=== PATIENT | female | born 1965 | race Caucasian/White ===

== ENCOUNTER 2020-06-13 09:07 | Outpatient (REF) | payer MEDICARE, MEDICAID, SELFPAY ==
[2020-06-13 10:16] LABS: Alanine Aminotransferase 16 U/L (0-31); Albumin Level 4.4 g/dL (3.5-5.0); Alkaline Phosphatase 118 U/L (39-117); Anion Gap 13 (12-20); Aspartate Amino Transferase 13 U/L (5-31); Bilirubin Total 0.4 mg/dL (0.0-1.0); Blood Urea Nitrogen 19 mg/dL (9-16); Calcium 9.3 mg/dL (8.4-10.2); Carbon Dioxide 25 mmol/L (22-29); Chloride 106 mmol/L (96-108); Cholesterol 93 mg/dL; Estimated Glomerular Filt Rate > 60; Glucose Random 100 mg/dL (60-115); HDL Cholesterol 24 mg/dL; LDL Cholesterol Calculated 36 mg/dl; Potassium 4.2 mmol/l (3.3-5.1); Sodium 140 mmol/L (135-145); Total Protein 7.8 g/dL (6.5-8.0); Triglycerides 167 mg/dL
[2020-06-13 10:32] LABS: Estimated Average Glucose 117 mg/dL; Hemoglobin A1c % 5.7 %
[2020-06-13 10:45] LABS: Creatinine Urine 119.45 mg/dL; Microalbum/Creatinine Ratio Ur 71.1 ug/mg cr
[2020-06-14 08:53] LABS: LDL Cholesterol Direct 32 mg/dL (<100)
== END 2020-06-13 09:08 | disposition home or self-care (01) ==
LOC: HO.LAB 09:07
PROVIDERS: PCP Internal Medicine; Visit Provider Internal Medicine
DX: E11.65 Type 2 diabetes mellitus with hyperglycemia (principal)
CPT/HCPCS: 36415; 80053; 80061; 82043; 83036; 83721

== ENCOUNTER → 2020-06-17 12:19 | Outpatient (BNVA) | payer MEDICARE, MEDICAID, SELFPAY | PROVIDERS: PCP Internal Medicine; Visit Provider Internal Medicine | DX: E11.65 Type 2 diabetes mellitus with hyperglycemia (principal); I10 Essential (primary) hypertension; E78.5 Hyperlipidemia, unspecified; E66.09 Other obesity due to excess calories | CPT/HCPCS: 82947; 99212 ==

== ENCOUNTER 2020-06-21 02:44 | Inpatient (IN) | payer MEDICARE, MEDICAID, SELFPAY ==
[2020-06-21] VITALS (15 sets, daily range): BP systolic 127–149; BP diastolic 70–86; PULSE 99–115; RESP 16–26; TEMP 36.1–37.1; O2SAT 89–99; BMI 28.3
--- NOTE | 2020-06-21 02:51 | ECG_ITS ---
Test Reason : SOB Blood Pressure : / mmHG Vent. Rate : 103 BPM Atrial Rate : 103 BPM P-R Int : 176 ms QRS Dur : 090 ms QT Int : 340 ms P-R-T Axes : 066 048 059 degrees QTc Int : 445 ms Sinus tachycardia Possible Left atrial enlargement Borderline ECG When compared with ECG of 25-OCT-2018 14:40, No significant change was found Referred By: Meggan Shultz Electronically Signed By: WANG ADORNO MD [facility]
--- NOTE | 2020-06-21 02:51 | XR_ITS ---
EXAMINATION: XR CHEST CLINICAL INFORMATION: Shortness of breath COMPARISON: 08/08/2018 TECHNIQUE: Frontal view of the chest was obtained. FINDINGS: EKG leads over the chest. Lungs are mildly hyperexpanded. Cardiac silhouette is normal. Pulmonary vasculature is unremarkable. No consolidation, pneumothorax, or pleural effusion. No acute osseous findings. XR/XR chest 1V IMPRESSION: No acute pulmonary findings.
--- NOTE | 2020-06-21 02:56 | ED_ITS ---
HPI - SOB/Dyspnea General Chief Complaint: Upper Respiratory Symptoms Stated Complaint: SOB Time Seen by Provider: 06/21/20 02:50 Source: patient History of Present Illness HPI Narrative: This is a 55-year-old female with worsening shortness of breath over the past couple of days and known history of COPD. Patient states that despite using her breathing treatments every 4 hours she has had no improvement. She denies any travel, GI symptoms, symptoms, chest pain/palpitations, sore throat but is having a cough and denies fevers, chills. Related Data Home Medications Medication Instructions Recorded Confirmed albuterol sulfate 2.5 mg INHALATION Q4-6H PRN 04/22/20 06/21/20 albuterol sulfate 90 mcg/actuation INHALATION 04/22/20 06/17/20 aerosol inhaler amlodipine 2.5 mg tablet 2.5 mg PO DAILY 04/22/20 06/21/20 atorvastatin 40 mg tablet 40 mg PO DAILY 04/22/20 06/21/20 blood sugar diagnostic #10 ea 04/22/20 06/17/20 cholecalciferol (vitamin D3) 25 25 mcg PO DAILY 04/22/20 06/21/20 mcg (1,000 unit) capsule clonazepam 1 mg tablet 1 mg PO BID PRN 04/22/20 06/21/20 famotidine 20 mg tablet 20 mg PO DAILY 04/22/20 06/21/20 hydrochlorothiazide 12.5 mg tablet 12.5 mg PO DAILY 04/22/20 06/21/20 metoprolol succinate 25 mg 25 mg PO DAILY 04/22/20 06/21/20 tablet,extended release 24 hr mirtazapine 30 mg tablet 30 mg PO BEDTIME 04/22/20 06/21/20 omeprazole 20 mg capsule,delayed 20 mg PO DAILY 04/22/20 06/21/20 release pen needle, diabetic 32 gauge x #50 ea 04/22/20 06/17/20 quetiapine 100 mg tablet 100 mg PO BEDTIME 04/22/20 06/21/20 Previous Rx's Medication Instructions Recorded liraglutide 0.6 mg/0.1 mL (18 mg/3 1.8 mg SUBCUT DAILY 30 Days #9 ml 04/01/20 mL) subcutaneous pen injector pen needle, diabetic 32 gauge x #50 ea 04/01/2006/10 lancets 28 gauge #100 ea 04/03/20 gabapentin 300 mg capsule 300 mg PO TID 30 Days #90 cap 06/13/20 flash glucose scanning reader #1 ea 06/17/20 flash glucose sensor #2 ea 06/17/20 Allergies Allergy/AdvReac Type Severity Reaction Status Date / Time tuberculin, purified protein Allergy Unknown Unknown Verified 06/17/20 12:43 deriva From TUBERCULIN PPD DAVON TEST Allergy Intermediate SWELLING Uncoded 06/17/20 12:43 Review of Systems Review of Systems: Pertinent positives and negatives as stated in HPI 10 point review systems is otherwise negative. [facility] Past Medical History Source: nursing notes reviewed Medical History CKD (chronic kidney disease) HLD (hyperlipidemia) HTN (hypertension) Obesity T2DM (type 2 diabetes mellitus) Surgical History History of esophagogastroduodenoscopy (EGD) History of renal stent Hx of cholecystectomy Hx of colonoscopy Hx of cystoscopy Hx of hemorrhoidectomy Hx of removal of cyst Hx of tubal ligation Family History Family History Father Liver disease Mother Depression Hypertension Asthma COPD (chronic obstructive pulmonary disease) Social History Social History Alcohol intake: current Smoking Status: Former smoker Smoked in Last 30 Days: No Advance Directives: No Physical Exam Vital Signs: Vital Signs: Last Vital Signs Temp 98.7 F 06/21/20 02:52 Pulse 99 06/21/20 07:48 Resp 22 H 06/21/20 06:00 BP 136/86 06/21/20 06:00 Pulse Ox 92 06/21/20 06:30 Body Mass Index 28.3 VITAL SIGNS: Reviewed. GENERAL: Well developed, well nourished, in no acute distress. HEAD: Normocephalic/atraumatic, EYES: PERRLA, EOMI intact without pain, no nystagmus/pallor/icterus noted EARS: Ext canals without abnormality NOSE: Nares patent bilateral OROPHARYNX: no oral lesions noted, posterior pharynx clear NECK: Supple, no adenopathy LUNGS: Bilateral rhonchi, no rales, and tachypnea present. SpO2<89/95> patient initially mildly hypoxic on arrival and responded well to application of nasal cannula. CARDIOVASCULAR: Regular rate and rhythm without noted murmurs, no JVD or lower extremity edema. ABDOMEN: Soft, non-tender, non-distended with bowel sounds. No rigidity. No guarding. No palpable masses or hernias noted MUSCULOSKELETAL: No tenderness, deformities, or effusions noted on gross inspect ion. EXTREMITIES: No cyanosis, clubbing or edema. SKIN: Inspection of the skin reveals no rashes NEUROLOGIC: Alert and oriented x 4. Course Course Course Narrative: This is a 55-year-old female with history and clinical presentation consistent with COPD exacerbation. On re-evaluation after an hour long albuterol and steroids patient remains unable to come off of the oxygen and additional DuoNebs and moxifloxacin were ordered. Discussed case with hospitalist who is agreeable for admission for COPD exacerbation. MDM - SOB/Dyspnea Lab Data Result diagrams: 06/21/20 03:33 06/21/20 03:33 Labs: Lab Results 06/21/20 06/21/20 06/21/20 Range/Units 03:33 03:33 03:33 WBC 9.3 (4.8-10.8) X10*3/uL RBC 5.08 (4.20-5.50) X10*6/uL Hgb 15.2 (12.0-16.0) g/dl Hct 46.8 (37-47) % MCV 92.1 (80-98) fL MCH 29.9 (27.0-33.0) pg MCHC 32.5 (31.0-35.0) g/dl RDW 13.2 (11.0-16.0) % Plt Count 260 (160-400) X10*3/uL MPV 9.5 (9.4-12.3) fL Immature Gran % (Auto) 0.4 (0.0-0.4) % Neut % (Auto) 70.3 (45-73) % Lymph % (Auto) 20.3 (20-40) % [place] % (Auto) 4.6 (2-11) % Eos % (Auto) 3.6 (0-4) % Baso % (Auto) 0.8 (0-2) % Lymph # (Auto) 1.9 (1.2-4.9) X10*3/uL [place] # (Auto) 0.4 (0.1-1.2) X10*3/uL Eos # (Auto) 0.3 (0.0-0.4) X10*3/uL Baso # (Auto) 0.1 (0.0-0.2) X10*3/uL Abs Immat Gran (auto) 0.04 H (0.00-0.03) X10*3/uL Absolute Neuts (auto) 6.5 (2.0-8.3) X10*3/uL Absolute Nucleated RBC 0.000 (0.0-0.012) X10*3/uL Nucleated RBC % (auto) 0.0 (0.0-0.2) /100WBC Sodium 143 (135-145) mmol/L Potassium 3.7 (3.3-5.1) mmol/l Chloride 105 (96-108) mmol/L Carbon Dioxide 27 (22-29) mmol/L Anion Gap 15 (12-20) BUN 22 H (9-16) mg/dL Creatinine 0.81 (0.5-1.4) mg/dL Estim Creat Clear Calc 70.4 Estimated GFR > 60 Random Glucose 125 H (60-115) mg/dL Lactic Acid (0.5-2.0) mmol/L Calcium 9.6 (8.4-10.2) mg/dL Magnesium 1.9 (1.6-2.6) mg/dL Total Bilirubin 0.2 (0.0-1.0) mg/dL AST 12 (5-31) U/L ALT 14 (0-31) U/L Alkaline Phosphatase 116 (39-117) U/L B-Natriuretic Peptide (<100) pg/mL Total Protein 7.4 (6.5-8.0) g/dL Albumin 4.2 (3.5-5.0) g/dL Coronavirus (PCR) NEGATIVE (Negative) Influenza Type A (PCR) NEGATIVE (Negative) Influenza Type B (PCR) NEGATIVE (Negative) RSV RNA Qual (PCR) NEGATIVE (Negative) 06/21/20 06/21/20 Range/Units 03:33 03:33 WBC (4.8-10.8) X10*3/uL RBC (4.20-5.50) X10*6/uL Hgb (12.0-16.0) g/dl Hct (37-47) % MCV (80-98) fL MCH (27.0-33.0) pg MCHC (31.0-35.0) g/dl RDW (11.0-16.0) % Plt Count (160-400) X10*3/uL MPV (9.4-12.3) fL Immature Gran % (Auto) (0.0-0.4) % Neut % (Auto) (45-73) % Lymph % (Auto) (20-40) % Sussex % (Auto) (2-11) % Eos % (Auto) (0-4) % Baso % (Auto) (0-2) % Lymph # (Auto) (1.2-4.9) X10*3/uL [place] # (Auto) (0.1-1.2) X10*3/uL Eos # (Auto) (0.0-0.4) X10*3/uL Baso # (Auto) (0.0-0.2) X10*3/uL Abs Immat Gran (auto) (0.00-0.03) X10*3/uL Absolute Neuts (auto) (2.0-8.3) X10*3/uL Absolute Nucleated RBC (0.0-0.012) X10*3/uL Nucleated RBC % (auto) (0.0-0.2) /100WBC Sodium (135-145) mmol/L Potassium (3.3-5.1) mmol/l Chloride (96-108) mmol/L Carbon Dioxide (22-29) mmol/L Anion Gap (12-20) BUN (9-16) mg/dL Creatinine (0.5-1.4) mg/dL Estim Creat Clear Calc Estimated GFR Random Glucose (60-115) mg/dL Lactic Acid 0.9 (0.5-2.0) mmol/L Calcium (8.4-10.2) mg/dL Magnesium (1.6-2.6) mg/dL Total Bilirubin (0.0-1.0) mg/dL AST (5-31) U/L ALT (0-31) U/L Alkaline Phosphatase (39-117) U/L B-Natriuretic Peptide 11 (<100) pg/mL Total Protein (6.5-8.0) g/dL Albumin (3.5-5.0) g/dL Coronavirus (PCR) (Negative) Influenza Type A (PCR) (Negative) Influenza Type B (PCR) (Negative) RSV RNA Qual (PCR) (Negative) ECG Data Attestation: I personally reviewed and interpreted this ECG as follows: Interpretation: Sinus tachycardia, HR-102, no evidence acute ischemia, KS/QRS/QTC are within normal limits. Discharge Plan Discharge Clinical Impression: COPD exacerbation, Hypoxia Patient Disposition: Admitted As Inpatient
[2020-06-21] MEDS: Albuterol Sulfate (0.083%) 2.5 MG/3 ML VIAL.NEB 5 MG INHALE (03:07)
[2020-06-21] MEDS: methylPREDNISolone Sod Succ/PF 125 MG/2 ML VIAL IVPUSH (03:37)
[2020-06-21 03:44] LABS: MANUAL DIFF FLAG NO
[2020-06-21 03:47] LABS: Basophils Absolute Auto 0.1 X10*3/uL (0.0-0.2); Basophils Percent Auto 0.8 % (0-2); Eosinophils Absolute Auto 0.3 X10*3/uL (0.0-0.4); Eosinophils Percent Auto 3.6 % (0-4); Hematocrit 46.8 % (37-47); Hemoglobin 15.2 g/dl (12.0-16.0); Imm Gran Abs Auto 0.04 X10*3/uL (0.00-0.03); Imm Gran Pct Auto 0.4 % (0.0-0.4); Lymphocytes Absolute Auto 1.9 X10*3/uL (1.2-4.9); Lymphocytes Percent Auto 20.3 % (20-40); Mean Corpuscular HGB Conc 32.5 g/dl (31.0-35.0); Mean Corpuscular Hemoglobin 29.9 pg (27.0-33.0); Mean Corpuscular Volume 92.1 fL (80-98); Mean Platelet Volume 9.5 fL (9.4-12.3); Monocytes Absolute Auto 0.4 X10*3/uL (0.1-1.2); Monocytes Percent Auto 4.6 % (2-11); Neutrophils Absolute Auto 6.5 X10*3/uL (2.0-8.3); Neutrophils Percent Auto 70.3 % (45-73); Platelet Count 260 X10*3/uL (160-400); Red Blood Count 5.08 X10*6/uL (4.20-5.50); Red Cell Distribution Width 13.2 % (11.0-16.0); White Blood Count 9.3 X10*3/uL (4.8-10.8)
[2020-06-21 04:07] LABS: Lactic Acid 0.9 mmol/L (0.5-2.0)
[2020-06-21 04:12] LABS: Alanine Aminotransferase 14 U/L (0-31); Albumin Level 4.2 g/dL (3.5-5.0); Alkaline Phosphatase 116 U/L (39-117); Anion Gap 15 (12-20); Aspartate Amino Transferase 12 U/L (5-31); Bilirubin Total 0.2 mg/dL (0.0-1.0); Blood Urea Nitrogen 22 mg/dL (9-16); Calcium 9.6 mg/dL (8.4-10.2); Carbon Dioxide 27 mmol/L (22-29); Chloride 105 mmol/L (96-108); Creatinine Clr Calc Pharmacy 70.4; Estimated Glomerular Filt Rate > 60; Glucose Random 125 mg/dL (60-115); Magnesium 1.9 mg/dL (1.6-2.6); Potassium 3.7 mmol/l (3.3-5.1); Sodium 143 mmol/L (135-145); Total Protein 7.4 g/dL (6.5-8.0)
[2020-06-21 04:27] LABS: B Type Natriuretic Peptide 11 pg/mL (<100)
[2020-06-21 04:31] LABS: Influenza A PCR NEGATIVE (Negative); Influenza B PCR NEGATIVE (Negative); Resp Syncy Virus RNA Qual PCR NEGATIVE (Negative); SARS COV2 PCR INHOUSE NEGATIVE (Negative)
[2020-06-21] MEDS: Benzonatate 100 MG CAPSULE PO (06:18)
--- NOTE | 2020-06-21 06:28 | PC.NURSE ---
PT MEDICATED PER MAR FOR COUGH. SUPPLEMENTAL O2 REMOVED, PT MAINTAINING 92-93% ON RA WHICH IS BASELINE PER PT DUE TO COPD. STATES SHE HAS A DOCTORS APPT THIS AM SHE DOES NOT WANT TO MISS. FALLING ASLEEP MID SENTENCE SPEAKING WITH RN. NOTIFIED OF CURRENT STATUS. RESULTS RECIEVED, AWAITING MD REEVAL AND MOST LIKELY DC HOME.
[2020-06-21] MEDS: Albuterol/Iprat 2.5/0.5MG 3 ML AMPUL.NEB INHALE ×2 (07:45)
--- NOTE | 2020-06-21 08:17 | PC.NURSE ---
pt completed updraft treatment and has agreed to admission she was given toast and juice
[2020-06-21] MEDS: levoFLOXacin/D5W 750 MG/150 ML PIGGYBACK 100 MG IV (08:28)
[2020-06-21 08:58] LABS: Adenovirus PCR Not Detected (Not Detect.); Bordetella parapertussis PCR Not Detected (Not Detect.); Bordetella pertussis PCR Not Detected (Not Detect.); Chlamydia pneumoniae PCR Not Detected (Not Detect.); Coronavirus 229E PCR Not Detected (Not Detect.); Coronavirus HKU1 PCR Not Detected (Not Detect.); Coronavirus NL63 PCR Not Detected (Not Detect.); Coronavirus OC43 PCR Not Detected (Not Detect.); Human metapneumovirus PCR Not Detected (Not Detect.); Influenza A PCR Not Detected (Not Detect.); Influenza B PCR Not Detected (Not Detect.); Mycoplasma pneumoniae PCR Not Detected (Not Detect.); Parainfluenza 1 PCR Not Detected (Not Detect.); Parainfluenza 2 PCR Not Detected (Not Detect.); Parainfluenza 3 PCR Not Detected (Not Detect.); Parainfluenza 4 PCR Not Detected (Not Detect.); RSV PCR Not Detected (Not Detect.); SARS-CoV-2 PCR Not Detected (Not Detect.)
[2020-06-21 11:23] LABS: Rhino/Enterovirus PCR Detected (Not Detect.)
[2020-06-21] MEDS: Acetaminophen 325 MG TABLET 650 MG PO ×2 (11:48→19:09)
[2020-06-21] MEDS: clonazePAM 1 MG TABLET PO ×2 (11:50→21:46)
[2020-06-21] MEDS: Cholecalciferol (Vitamin D3) 25 MCG TABLET PO (11:50)
[2020-06-21] MEDS: Gabapentin 300 MG CAPSULE PO ×3 (11:51→21:46)
[2020-06-21] MEDS: Atorvastatin Calcium 40 MG TABLET PO (11:52)
[2020-06-21] MEDS: amLODIPine Besylate 2.5 MG TABLET PO (11:52)
[2020-06-21] MEDS: Albuterol Sulfate (0.083%) 2.5 MG/3 ML VIAL.NEB INHALE ×3 (12:03→20:35)
[2020-06-21] MEDS: hydroCHLOROthiazide 12.5 MG TABLET PO (12:17)
--- NOTE | 2020-06-21 13:01 | HP_ITS ---
DATE OF SERVICE: 06/21/2020 PRIMARY CARE PROVIDER: Not listed. CHIEF COMPLAINT: Shortness of breath. HISTORY OF PRESENT ILLNESS: 55-year-old woman presenting with complaints of worsening shortness of breath over the last 2 days. She reported tight chest with dry cough. She reported that she went to her daughter's house several days ago and the living room was quite cold and then the kitchen was warm and she reported that she felt sick soon after that. She reports her last bad exacerbation was approximately 3 years ago and she has been using her inhalers, over the last couple of days with no effect. She denied fever, chills, recent travel, sick contacts, nausea, vomiting, or diarrhea. She does have a history of COPD and she is a previous smoker. In the ER, her vital signs have been stable. She has not been noted to be hypoxic at all. She was mildly tachycardic likely related to albuterol treatments. Her labs are all within acceptable limits. Coronavirus PCR is negative. She was given albuterol, Solu-Medrol, Tessalon Perles, and Levaquin in the ER. She will be admitted for further management and treatment of acute COPD exacerbation. PAST MEDICAL HISTORY: 1. COPD. 2. Diabetes mellitus. 3. CKD. 4. Hypertension. 5. Hyperlipidemia. 6. GERD. 7. Depression. PAST SURGICAL HISTORY: 1. Ureteral stent. 2. Cholecystectomy. 3. Hysterectomy. 4. Tubal ligation. SOCIAL HISTORY: Quit more than 3 years ago. Denies alcohol or illicit drug use. FAMILY HISTORY: Family history of coronary artery disease and COPD. ALLERGIES: ALLERGIES TO TUBERCULIN, PPD. MEDICATIONS: 1. Albuterol sulfate q.4 to 6 hours p.r.n. for shortness of breath. 2. Amlodipine besylate 2.5 mg p.o. daily. 3. Atorvastatin calcium 40 mg p.o. daily. 4. Cholecalciferol 25 mcg p.o. daily. 5. Clonazepam 1 mg p.o. b.i.d. p.r.n. 6. Famotidine 20 mg p.o. daily. 7. Gabapentin 300 mg p.o. t.i.d. 8. Hydrochlorothiazide 12.5 mg p.o. daily. 9. Liraglutide subcutaneous injected daily. 10. Metoprolol succinate 25 mg p.o. daily. 11. Mirtazapine 30 mg p.o. at bedtime. 12. Omeprazole 20 mg p.o. daily. 13. Seroquel 100 mg p.o. at bedtime. REVIEW OF SYSTEMS: CONSTITUTIONAL: Denies any recent fever, chills, or decrease in appetite. RESPIRATORY: See HPI. CARDIOVASCULAR: Denies any chest pain, orthopnea, PND, or edema. GASTROINTESTINAL: Denies any dysphagia, abdominal pain, nausea, vomiting, or diarrhea. GENITOURINARY: Denies any dysuria, frequency, or hematuria. MUSCULOSKELETAL: Denies any joint pain or swelling. NEUROPSYCH: Denies any weakness or seizures. All other systems are reviewed and are negative. PHYSICAL EXAMINATION: CONSTITUTIONAL: Resting in bed, appearing in no acute distress. VITAL SIGNS: 98.7, 109, 26, 130/80, and 96% on room air. SKIN: Intact without rashes or open sores. HEENT: Head is normocephalic and atraumatic. Eyes, pupils are PERRLA. Sclerae anicteric. Mouth and throat, mucous membranes are intact and moist. NECK: Supple. No lymphadenopathy. No JVD noted. CHEST: Expiratory wheezes throughout. HEART: Regular rate and rhythm. Clear S1 and S2. No murmurs, rubs, or gallops. ABDOMEN: Positive bowel sounds. Soft and nontender. No hepatomegaly or splenomegaly noted. NEURO: The patient is alert and oriented x3. Cranial nerves II through XII are grossly intact without focal deficits. LABORATORY DATA: WBC 9.3, hemoglobin 15.2, hematocrit 46.8, and platelets 260. Sodium is 142, potassium 3.7, chloride is 105, bicarb is 27, BUN is 22, and creatinine 0.81. ASSESSMENT/PLAN: 55-year-old woman who is being admitted with acute respiratory failure secondary to chronic obstructive pulmonary disease exacerbation. 1. Acute respiratory failure secondary to chronic obstructive pulmonary disease exacerbation. DuoNeb, Solu-Medrol, azithromycin, and supplemental oxygen. 2. Diabetes mellitus. Sliding scale, ADA diet. 3. Hypertension. Stable blood pressure. Continue amlodipine, hydrochlorothiazide, and metoprolol. 4. Gastroesophageal reflux disease. Continue PPI. 5. Depression. Continue Seroquel. 6. Hyperlipidemia. Continue statin. 7. Deep vein thrombosis prophylaxis with Lovenox. 8. Case discussed with Dr. Reed. 9. Full code. JOSSUE Montoya MD JR/NAMRATA / [id number]
--- NOTE | 2020-06-21 14:19 | PC.NURSE ---
PT ATE FULL LUNCH OFFERS MULTIPLE COMPLAINTS REGARDING COMFORT AND AWAITING ROOM ASSIGNMENT RESP CONGESTED BUT NON LABORED AT REST
--- NOTE | 2020-06-21 15:17 | MHC.CM.PN ---
Met with patient in [facility] pending admission to floor.. PCP is Dr. Erin Schmidt at [facility]. HCP on file/verified. HCP Jenny Beal, daughter, . D/C plan is home with [facility] services for chronic disease management and medication management per pt request. Pt had a visiting nurse in past. Can't remember what agency. Will find name and let CM know. Pt would like a referral to Dr. Rojas at [facility] [place] when she leaves the hospital. States has appointment with PCP tomorrow to get a referral to Dr. Rojas. IMM reviewed and signed. D/C plan home with [facility]NA. No referrals made
--- NOTE | 2020-06-21 16:55 | P.EN_ITS ---
Event Note Date of Service: 06/21/20 Event Note: Admission note The patient was seen and evaluated with Nehal Roa NP. I agree with her note, assessment and plan with the following. A 55 years old lady with PMH of COPD, diabetes, CKD who presents to the hospital complaining of shortness of breath, wheezing and coughing for the last 2 days. She tried her home medications with no success. She feels very dyspneic with minimal exertion but and reporting epigastric and back pain from coughing. No reported fever, chills, palpitation, nausea or vomiting. Acute hypoxic respiratory failure COPD exacerbation To wean down oxygen as tolerated continue bronchodilator nebulizers IV steroids Azithromycin Rest of evaluations by [employer] note.
[2020-06-21] MEDS: Ibuprofen 400 MG TABLET PO (17:13)
[2020-06-21] MEDS: Lidocaine 4 % Patch ADH..PATCH 1 PATCH TRANSDERMA (17:14)
[2020-06-21] MEDS: Benzonatate 100 MG CAPSULE 200 MG PO ×2 (17:14→21:45)
[2020-06-21] MEDS: 0.9 % Sodium Chloride Flush 3 ML SYRINGE IVFLUSH ×2 (17:14→23:54)
[2020-06-21 21:16] LABS: Glucose, Whole Blood 324 mg/dL (60-115)
[2020-06-21] MEDS: QUEtiapine Fumarate 100 MG TABLET PO (21:46)
[2020-06-21] MEDS: Mirtazapine 30 MG TABLET PO (21:46)
[2020-06-21] MEDS: Insulin Lispro 100 UNIT/ML 3 ML VIAL SUBCUT (21:46)
[2020-06-22] VITALS (11 sets, daily range): BP systolic 105–138; BP diastolic 55–83; PULSE 95–118; RESP 16–20; TEMP 36–36.8; O2SAT 93–98
[2020-06-22] MEDS: Albuterol Sulfate (0.083%) 2.5 MG/3 ML VIAL.NEB INHALE ×6 (00:06→19:52)
[2020-06-22 07:50] LABS: Basophils Percent Auto 0.1 % (0-2); Hematocrit 48.9 % (37-47); Hemoglobin 15.6 g/dl (12.0-16.0); Imm Gran Abs Auto 0.11 X10*3/uL (0.00-0.03); Imm Gran Pct Auto 0.7 % (0.0-0.4); Lymphocytes Absolute Auto 0.7 X10*3/uL (1.2-4.9); Lymphocytes Percent Auto 4.8 % (20-40); MANUAL DIFF FLAG SCAN; Mean Corpuscular HGB Conc 31.9 g/dl (31.0-35.0); Mean Corpuscular Hemoglobin 29.2 pg (27.0-33.0); Mean Corpuscular Volume 91.4 fL (80-98); Mean Platelet Volume 10.2 fL (9.4-12.3); Monocytes Absolute Auto 0.3 X10*3/uL (0.1-1.2); Monocytes Percent Auto 2.2 % (2-11); Neutrophils Absolute Auto 13.9 X10*3/uL (2.0-8.3); Neutrophils Percent Auto 92.2 % (45-73); Platelet Count 316 X10*3/uL (160-400); Red Blood Count 5.35 X10*6/uL (4.20-5.50); Red Cell Distribution Width 13.2 % (11.0-16.0); SCAN SMEAR FLAG 1; White Blood Count 15.1 X10*3/uL (4.8-10.8)
[2020-06-22 07:51] LABS: Glucose, Whole Blood 333 mg/dL (60-115)
[2020-06-22] MEDS: Insulin Lispro 100 UNIT/ML 3 ML VIAL SUBCUT ×4 (08:14→20:12)
[2020-06-22] MEDS: Famotidine 20 MG TABLET PO (08:17)
[2020-06-22] MEDS: Cholecalciferol (Vitamin D3) 25 MCG TABLET PO (08:17)
[2020-06-22] MEDS: Omeprazole 20 MG CAPSULE.DR PO (08:17)
[2020-06-22] MEDS: Metoprolol Succinate ER 25 MG TAB.ER.24H PO (08:18)
[2020-06-22] MEDS: hydroCHLOROthiazide 12.5 MG TABLET PO (08:19)
[2020-06-22] MEDS: Benzonatate 100 MG CAPSULE 200 MG PO ×3 (08:19→20:13)
[2020-06-22] MEDS: amLODIPine Besylate 2.5 MG TABLET PO (08:20)
[2020-06-22] MEDS: Atorvastatin Calcium 40 MG TABLET PO (08:20)
[2020-06-22] MEDS: Gabapentin 300 MG CAPSULE PO ×3 (08:20→20:13)
[2020-06-22] MEDS: Lidocaine 4 % Patch ADH..PATCH 1 PATCH TRANSDERMA (08:20)
[2020-06-22 08:21] LABS: SLIDE REVIEW VERIFIED
[2020-06-22] MEDS: clonazePAM 1 MG TABLET PO ×2 (08:31→20:13)
[2020-06-22] MEDS: Azithromycin 500 MG in 0.9 % Sodium Chloride 250 ML 125 MG IV (08:32)
[2020-06-22] MEDS: 0.9 % Sodium Chloride Flush 3 ML SYRINGE IVFLUSH ×3 (11:26→20:14)
[2020-06-22 11:49] LABS: Glucose, Whole Blood 368 mg/dL (60-115)
[2020-06-22] MEDS: guaiFEN/Codeine SF 200/20/10ML 10 ML LIQUID 5 ML PO ×3 (13:16→20:12)
--- NOTE | 2020-06-22 14:58 | HO.PM.IMPN ---
Subjective Subjective Date of Service: 06/22/20 Interval History: The patient was seen and evaluated this morning Laying in bed, pain in her stomach from severe cough, shortness of breath improving Denies any fever, chills or chest pain No reported other overnight events. Systemic review: No fever, chills or weakness No chest pain, palpitation Reporting dry cough, shortness of breath with No abdominal pain, nausea or vomiting No urinary symptoms No any rash or wounds Physical Exam Vital Signs: Vital Signs: Last Vital Signs Temp 97.1 F 06/22/20 11:41 Pulse 109 H 06/22/20 11:41 Resp 19 06/22/20 11:41 BP 105/63 06/22/20 11:41 Pulse Ox 93 06/22/20 11:41 Body Mass Index 28.3 Constitutional : Alert, oriented, not in distress Neck : Normal inspection, Supple Cardiovascular : RRR, S1 S2, no lower extremity edema Respiratory : Decreased bilateral air entry, bilateral scattered wheezes and rhonchi, no crackles Gastrointestinal: soft, lax, Normal bowel sounds, Non tender Skin : Warm/Dry, No rash Neurological : Alert & oriented x3, No focal deficit Objective Data Current Medications Generic Name Dose Route Start Last Admin Trade Name Freq PRN Reason Stop Dose Admin Acetaminophen 650 mg 06/21/20 11:08 06/21/20 19:09 Acetaminophen 325 Mg Tablet PO 650 mg Q6H PRN Administration Pain, Mild (Pain Scale 1-3) Albuterol Sulfate 2.5 mg 06/21/20 12:00 06/22/20 11:26 Albuterol Sulfate (0.083%) 2.5 Mg/3 Ml Vial.Neb INHALE 2.5 mg RQ4H WHILE AWAKE STEFANIE Administration Albuterol Sulfate 2.5 mg 06/21/20 11:08 06/22/20 03:55 Albuterol Sulfate (0.083%) 2.5 Mg/3 Ml Vial.Neb INHALE 2.5 mg Q4H PRN Administration Shortness Of Breath Or Wheezing Amlodipine Besylate 2.5 mg 06/22/20 09:00 06/22/20 08:20 Amlodipine Besylate 2.5 Mg Tablet PO 2.5 mg DAILY STEFANIE Administration Protocol Atorvastatin Calcium 40 mg 06/22/20 09:00 06/22/20 08:20 Atorvastatin Calcium 40 Mg Tablet PO 40 mg DAILY STEFANIE Administration Benzonatate 200 mg 06/21/20 16:55 06/22/20 14:06 Benzonatate 100 Mg Capsule PO 200 mg TID STEFANIE Administration Clonazepam 1 mg 06/21/20 11:08 06/22/20 08:31 Clonazepam 1 Mg Tablet PO 1 mg BID PRN Administration Anxiety Famotidine 20 mg 06/22/20 09:00 06/22/20 08:17 Famotidine 20 Mg Tablet PO 20 mg DAILY STEFANIE Administration Gabapentin 300 mg 06/21/20 15:00 06/22/20 14:06 Gabapentin 300 Mg Capsule PO 300 mg TID STEFANIE Administration Guaifenesin/Codeine Phosphate 5 ml 06/22/20 12:00 06/22/20 13:16 Guaifen/Codeine Sf 200/20/10ml 10 Ml Liquid PO 5 ml Q4H STEFANIE Administration Hydrochlorothiazide 12.5 mg 06/22/20 09:00 06/22/20 08:19 Hydrochlorothiazide 12.5 Mg Tablet PO 12.5 mg DAILY [facility] Administration Protocol Azithromycin 500 mg/ Sodium 250 mls @ 125 mls/hr 06/22/20 09:00 06/22/20 11:29 Chloride IV Infused Q24H STEFANIE Infusion Ibuprofen 200 mg 06/21/20 16:53 Ibuprofen 200 Mg Tablet PO Q6H PRN Pain, Moderate (Pain Scale 4-6 Insulin Human Lispro 0 unit 06/21/20 21:00 06/22/20 12:08 Insulin Lispro 100 Unit/Ml 3 Ml Vial SUBCUT 10 unit QIDACHS [facility] Administration Protocol Lidocaine 1 patch 06/21/20 16:55 06/22/20 08:20 Lidocaine 4 % Patch Adh..Patch TRANSDERMA 1 patch DAILY [facility] Administration Protocol Methylprednisolone Sodium Succinate 40 mg 06/21/20 11:15 06/22/20 11:26 Methylprednisolone Sod Succ/Pf 40 Mg/Ml Vial IVPUSH 40 mg Q8H STEFANIE Administration Metoprolol Succinate 25 mg 06/22/20 09:00 06/22/20 08:18 Metoprolol Succinate Er 25 Mg Tab.Er.24h PO 25 mg DAILY TSEFANIE Administration Protocol Mirtazapine 30 mg 06/21/20 21:00 06/21/20 21:46 Mirtazapine 30 Mg Tablet PO 30 mg BEDTIME STEFANIE Administration Non-Formulary Medication 1.8 mg 06/22/20 09:00 Liraglutide [Victoza 3-Riley] SUBCUT DAILY [facility] Omeprazole 20 mg 06/22/20 09:00 06/22/20 08:17 Omeprazole 20 Mg Capsule.Dr PO 20 mg DAILY STEFANIE Administration Ondansetron HCl 4 mg 06/21/20 11:08 Ondansetron Hcl 4 Mg/2 Ml Vial IVPUSH Q8H PRN Nausea and Vomiting Quetiapine Fumarate 100 mg 06/21/20 21:00 06/21/20 21:46 Quetiapine Fumarate 100 Mg Tablet PO 100 mg BEDTIME STEFANIE Administration Sodium Chloride 3 ml 06/21/20 16:00 06/22/20 11:26 0.9 % Sodium Chloride Flush 3 Ml Syringe IVFLUSH 3 ml QSHIFT STEFANIE Administration Vitamin D 25 mcg 06/22/20 09:00 06/22/20 08:17 Cholecalciferol (Vitamin D3) 25 Mcg Tablet PO 25 mcg DAILY STEFANIE Administration Labs CBC & Chem 7: 06/22/20 07:00 06/21/20 03:33 Microbiology Microbiology Results: Microbiology 06/21/20 03:36 Blood - Venous Blood Culture - Preliminary No growth after 24 hours. 06/21/20 03:33 Blood - Venous Blood Culture - Preliminary No growth after 24 hours. Assessment and Plan (1) Hypoxia: Status: Acute (2) COPD exacerbation: Status: Acute (3) Obesity: Status: Acute (4) CKD (chronic kidney disease): Status: Acute (5) Hyperglycemia due to diabetes mellitus: Status: Acute
[2020-06-22] MEDS: Insulin Glargine,Hum.rec.anlog 100 UNIT/ML 10 ML VIAL 8 UNIT SUBCUT (16:24)
[2020-06-22 16:52] LABS: Glucose, Whole Blood 364 mg/dL (60-115)
[2020-06-22 20:06] LABS: Glucose, Whole Blood 293 mg/dL (60-115)
[2020-06-22] MEDS: Mirtazapine 30 MG TABLET PO (20:13)
[2020-06-22] MEDS: QUEtiapine Fumarate 100 MG TABLET PO (20:13)
[2020-06-23] MEDS: guaiFEN/Codeine SF 200/20/10ML 10 ML LIQUID 5 ML PO ×3 (04:04→08:57)
[2020-06-23 06:52] LABS: Anion Gap 15 (12-20); Blood Urea Nitrogen 36 mg/dL (9-16); Calcium 9.6 mg/dL (8.4-10.2); Carbon Dioxide 24 mmol/L (22-29); Chloride 109 mmol/L (96-108); Creatinine Clr Calc Pharmacy 64.8; Estimated Glomerular Filt Rate > 60; Glucose Random 147 mg/dL (60-115); Potassium 4.6 mmol/l (3.3-5.1); Sodium 143 mmol/L (135-145)
[2020-06-23] MEDS: Albuterol Sulfate (0.083%) 2.5 MG/3 ML VIAL.NEB INHALE (07:20)
[2020-06-23 07:37] LABS: Glucose, Whole Blood 128 mg/dL (60-115)
[2020-06-23 08:00] VITALS: BP 119/76; PULSE 89; RESP 20; TEMP 36.4; O2SAT 96
[2020-06-23] MEDS: 0.9 % Sodium Chloride Flush 3 ML SYRINGE IVFLUSH (08:45)
[2020-06-23 08:46] VITALS: BP 119/76; PULSE 89
[2020-06-23] MEDS: Cholecalciferol (Vitamin D3) 25 MCG TABLET PO (08:46)
[2020-06-23] MEDS: hydroCHLOROthiazide 12.5 MG TABLET PO (08:46)
[2020-06-23] MEDS: Famotidine 20 MG TABLET PO (08:46)
[2020-06-23] MEDS: clonazePAM 1 MG TABLET PO (08:46)
[2020-06-23] MEDS: amLODIPine Besylate 2.5 MG TABLET PO (08:46)
[2020-06-23] MEDS: Benzonatate 100 MG CAPSULE 200 MG PO (08:46)
[2020-06-23] MEDS: Gabapentin 300 MG CAPSULE PO (08:46)
[2020-06-23 08:47] VITALS: BP 119/76; PULSE 89
[2020-06-23] MEDS: Lidocaine 4 % Patch ADH..PATCH 1 PATCH TRANSDERMA (08:47)
[2020-06-23] MEDS: Omeprazole 20 MG CAPSULE.DR PO (08:47)
[2020-06-23] MEDS: Atorvastatin Calcium 40 MG TABLET PO (08:47)
[2020-06-23] MEDS: Metoprolol Succinate ER 25 MG TAB.ER.24H PO (08:47)
--- NOTE | 2020-06-23 09:54 | MHC.CM.PN ---
Pt indicating she does not know the name of the [facility]NA she was using, per her medical records, she was active with [facility] in 2019. Message left for [facility] liaison requesting information regarding pts status with them.
--- NOTE | 2020-06-23 13:53 | P.DS_ITS ---
DS: Providers Provider Date of Service: 06/23/20 Date of admission: 06/21/20 11:08 Primary care physician: Unknown Physician DS: Diagnosis Discharge Diagnosis (1) Hypoxia: Status: Acute (2) COPD exacerbation: Status: Acute (3) Obesity: Status: Acute (4) CKD (chronic kidney disease): Status: Acute (5) Hyperglycemia due to diabetes mellitus: Status: Acute DS: Medications Discharge Medications Home Medications: Home Medications Medication Instructions Recorded Confirmed albuterol sulfate 2.5 mg INHALATION Q4-6H PRN 04/22/20 06/21/20 albuterol sulfate 90 mcg/actuation INHALATION 04/22/20 06/17/20 aerosol inhaler amlodipine 2.5 mg tablet 2.5 mg PO DAILY 04/22/20 06/21/20 atorvastatin 40 mg tablet 40 mg PO DAILY 04/22/20 06/21/20 blood sugar diagnostic #10 ea 04/22/20 06/17/20 cholecalciferol (vitamin D3) 25 25 mcg PO DAILY 04/22/20 06/21/20 mcg (1,000 unit) capsule clonazepam 1 mg tablet 1 mg PO BID PRN 04/22/20 06/21/20 famotidine 20 mg tablet 20 mg PO DAILY 04/22/20 06/21/20 hydrochlorothiazide 12.5 mg tablet 12.5 mg PO DAILY 04/22/20 06/21/20 metoprolol succinate 25 mg 25 mg PO DAILY 04/22/20 06/21/20 tablet,extended release 24 hr mirtazapine 30 mg tablet 30 mg PO BEDTIME 04/22/20 06/21/20 omeprazole 20 mg capsule,delayed 20 mg PO DAILY 04/22/20 06/21/20 release pen needle, diabetic 32 gauge x #50 ea 04/22/20 06/17/2032 quetiapine 100 mg tablet 100 mg PO BEDTIME 04/22/20 06/21/20 Previous Rx's Medication Instructions Recorded liraglutide 0.6 mg/0.1 mL (18 mg/3 1.8 mg SUBCUT DAILY 30 Days #9 ml 04/01/20 mL) subcutaneous pen injector pen needle, diabetic 32 gauge x #50 ea 04/01/20 1/4 lancets 28 gauge #100 ea 04/03/20 gabapentin 300 mg capsule 300 mg PO TID 30 Days #90 cap 06/13/20 flash glucose scanning reader #1 ea 06/17/20 flash glucose sensor #2 ea 06/17/20 albuterol sulfate 2 puff INHALATION Q4-6H PRN 30 06/23/20 Days g azithromycin 250 mg PO DAILY 3 Days #3 tab 06/23/20 codeine-guaifenesin 5 ml PO Q4H 7 Days ml 06/23/20 prednisone 40 mg PO DAILY #6 tab 06/23/20 DS: Summary Hospital Course Hospital Course: Admission note HPI 55-year-old woman presenting with complaints of worsening shortness of breath over the last 2 days. She reported tight chest with dry cough. She reported that she went to her daughter's house several days ago and the living room was quite cold and then the kitchen was warm and she reported that she felt sick soon after that. She reports her last bad exacerbation was approximately 3 years ago and she has been using her inhalers, over the last couple of days with no effect. She denied fever, chills, recent travel, sick contacts, nausea, vomiting, or diarrhea. She does have a history of COPD and she is a previous smoker. In the ER, her vital signs have been stable. She has not been noted to be hypoxic at all. She was mildly tachycardic likely related to albuterol treatments. Her labs are all within acceptable limits. Coronavirus PCR is negative. She was given albuterol, Solu-Medrol, Tessalon Perles, and Levaquin in the ER. She will be admitted for further management and treatment of acute COPD exacerbation. Hospital course The patient was admitted to the hospital for evaluation of difficulty breathing, drop on oxygen saturation and wheezing as a result of COPD exacerbation. She tested positive for the rhinovirus. She responded well to treatment with nebulizers, steroids and cough medication with azithromycin. Wean of the oxygen and was able to ambulate freely on room air with no reported dyspnea. Discharge medication as medication list. To follow-up with Dr. Rojas as outpatient. Time Spent with Patient Time attestation: Total time spent providing and/or coordinating discharge services: Discharge coordination time: Greater than 30 minutes Physical Exam Vital Signs: Vital Signs: Last Vital Signs Temp 97.6 F 06/23/20 08:00 Pulse 89 06/23/20 08:47 Resp 20 06/23/20 08:00 BP 119/76 06/23/20 08:47 Pulse Ox 96 06/23/20 08:00 Body Mass Index 28.3 Constitutional : Alert, oriented, not in distress Neck : Normal inspection, Supple Cardiovascular : RRR, S1 S2, no lower extremity edema Respiratory : Decrease bilateral air entry, no crackles, fine scattered wheezes , no rhonchi Gastrointestinal: soft, lax, Normal bowel sounds, Non tender Skin : Warm/Dry, No rash Neurological : Alert & oriented x3, No focal deficit DS: Data Data Completed and Pending Labs on day of discharge: Laboratory Tests 06/21/20 06/21/20 06/21/20 03:33 03:33 03:33 WBC 9.3 RBC 5.08 Hgb 15.2 Hct 46.8 MCV 92.1 MCH 29.9 MCHC 32.5 RDW 13.2 Plt Count 260 MPV 9.5 Immature Gran % (Auto) 0.4 Neut % (Auto) 70.3 Lymph % (Auto) 20.3 Amite % (Auto) 4.6 Eos % (Auto) 3.6 Baso % (Auto) 0.8 Lymph # (Auto) 1.9 Amite # (Auto) 0.4 Eos # (Auto) 0.3 Baso # (Auto) 0.1 Abs Immat Gran (auto) 0.04 H Absolute Neuts (auto) 6.5 Absolute Nucleated RBC 0.000 Nucleated RBC % (auto) 0.0 Smear Tech's Comments Sodium 143 Potassium 3.7 Chloride 105 Carbon Dioxide 27 Anion Gap 15 BUN 22 H Creatinine 0.81 Estim Creat Clear Calc 70.4 Estimated GFR > 60 POC Glucose Random Glucose 125 H Lactic Acid Calcium 9.6 Magnesium 1.9 Total Bilirubin 0.2 AST 12 ALT 14 Alkaline Phosphatase 116 B-Natriuretic Peptide Total Protein 7.4 Albumin 4.2 Respiratory Panel Heath Adenovirus (Rapid PCR) B.pert (TEM-PCR) B.parapertussis DNA PCR C. pneumoniae DNA (PCR) Coronavirus (PCR) NEGATIVE Coronavirus OC43 (PCR) Coronavirus HKU1 (PCR) Coronavirus 229E (PCR) Coronavirus NL63 (PCR) Human Metapneumovir PCR Influenza A (RT-PCR) Influenza Type A (PCR) NEGATIVE Influenza B (RT-PCR) Influenza Type B (PCR) NEGATIVE M. pneumoniae (PCR) Parainfluenza 1 (PCR) Parainfluenza 2 (PCR) Parainfluenza 3 (PCR) Parainfluenza 4 (PCR) RSV (PCR) RSV RNA Qual (PCR) NEGATIVE Entero/Rhino (PCR) SARS-CoV-2 RNA (RT-PCR) 06/21/20 06/21/20 06/21/20 03:33 03:33 03:33 WBC RBC Hgb Hct MCV MCH MCHC RDW Plt Count MPV Immature Gran % (Auto) Neut % (Auto) Lymph % (Auto) Amite % (Auto) Eos % (Auto) Baso % (Auto) Lymph # (Auto) Amite # (Auto) Eos # (Auto) Baso # (Auto) Abs Immat Gran (auto) Absolute Neuts (auto) Absolute Nucleated RBC Nucleated RBC % (auto) Smear Tech's Comments Sodium Potassium Chloride Carbon Dioxide Anion Gap BUN Creatinine Estim Creat Clear Calc Estimated GFR POC Glucose Random Glucose Lactic Acid 0.9 Calcium Magnesium Total Bilirubin AST ALT Alkaline Phosphatase B-Natriuretic Peptide 11 Total Protein Albumin Respiratory Panel Heath See Note Adenovirus (Rapid PCR) Not Detected B.pert (TEM-PCR) Not Detected B.parapertussis DNA PCR Not Detected C. pneumoniae DNA (PCR) Not Detected Coronavirus (PCR) Coronavirus OC43 (PCR) Not Detected Coronavirus HKU1 (PCR) Not Detected Coronavirus 229E (PCR) Not Detected Coronavirus NL63 (PCR) Not Detected Human Metapneumovir PCR Not Detected Influenza A (RT-PCR) Not Detected Influenza Type A (PCR) Influenza B (RT-PCR) Not Detected Influenza Type B (PCR) M. pneumoniae (PCR) Not Detected Parainfluenza 1 (PCR) Not Detected Parainfluenza 2 (PCR) Not Detected Parainfluenza 3 (PCR) Not Detected Parainfluenza 4 (PCR) Not Detected RSV (PCR) Not Detected RSV RNA Qual (PCR) Entero/Rhino (PCR) Detected A SARS-CoV-2 RNA (RT-PCR) Not Detected 06/21/20 06/22/20 06/22/20 21:02 07:00 07:14 WBC 15.1 H RBC 5.35 Hgb 15.6 Hct 48.9 H MCV 91.4 MCH 29.2 MCHC 31.9 RDW 13.2 Plt Count 316 MPV 10.2 Immature Gran % (Auto) 0.7 H Neut % (Auto) 92.2 H Lymph % (Auto) 4.8 L Amite % (Auto) 2.2 Eos % (Auto) 0.0 Baso % (Auto) 0.1 Lymph # (Auto) 0.7 L Amite # (Auto) 0.3 Eos # (Auto) 0.0 Baso # (Auto) 0.0 Abs Immat Gran (auto) 0.11 H Absolute Neuts (auto) 13.9 H Absolute Nucleated RBC 0.000 Nucleated RBC % (auto) 0.0 Smear Tech's Comments VERIFIED Sodium Potassium Chloride Carbon Dioxide Anion Gap BUN Creatinine Estim Creat Clear Calc Estimated GFR POC Glucose 324 H 333 H Random Glucose Lactic Acid Calcium Magnesium Total Bilirubin AST ALT Alkaline Phosphatase B-Natriuretic Peptide Total Protein Albumin Respiratory Panel Heath Adenovirus (Rapid PCR) B.pert (TEM-PCR) B.parapertussis DNA PCR C. pneumoniae DNA (PCR) Coronavirus (PCR) Coronavirus OC43 (PCR) Coronavirus HKU1 (PCR) Coronavirus 229E (PCR) Coronavirus NL63 (PCR) Human Metapneumovir PCR Influenza A (RT-PCR) Influenza Type A (PCR) Influenza B (RT-PCR) Influenza Type B (PCR) M. pneumoniae (PCR) Parainfluenza 1 (PCR) Parainfluenza 2 (PCR) Parainfluenza 3 (PCR) Parainfluenza 4 (PCR) RSV (PCR) RSV RNA Qual (PCR) Entero/Rhino (PCR) SARS-CoV-2 RNA (RT-PCR) 06/22/20 06/22/20 06/22/20 11:45 16:48 20:00 WBC RBC Hgb Hct MCV MCH MCHC RDW Plt Count MPV Immature Gran % (Auto) Neut % (Auto) Lymph % (Auto) Amite % (Auto) Eos % (Auto) Baso % (Auto) Lymph # (Auto) Amite # (Auto) Eos # (Auto) Baso # (Auto) Abs Immat Gran (auto) Absolute Neuts (auto) Absolute Nucleated RBC Nucleated RBC % (auto) Smear Tech's Comments Sodium Potassium Chloride Carbon Dioxide Anion Gap BUN Creatinine Estim Creat Clear Calc Estimated GFR POC Glucose 368 H* 364 H* 293 H Random Glucose Lactic Acid Calcium Magnesium Total Bilirubin AST ALT Alkaline Phosphatase B-Natriuretic Peptide Total Protein Albumin Respiratory Panel Heath Adenovirus (Rapid PCR) B.pert (TEM-PCR) B.parapertussis DNA PCR C. pneumoniae DNA (PCR) Coronavirus (PCR) Coronavirus OC43 (PCR) Coronavirus HKU1 (PCR) Coronavirus 229E (PCR) Coronavirus NL63 (PCR) Human Metapneumovir PCR Influenza A (RT-PCR) Influenza Type A (PCR) Influenza B (RT-PCR) Influenza Type B (PCR) M. pneumoniae (PCR) Parainfluenza 1 (PCR) Parainfluenza 2 (PCR) Parainfluenza 3 (PCR) Parainfluenza 4 (PCR) RSV (PCR) RSV RNA Qual (PCR) Entero/Rhino (PCR) SARS-CoV-2 RNA (RT-PCR) 06/23/20 06/23/20 05:47 07:24 WBC RBC Hgb Hct MCV MCH MCHC RDW Plt Count MPV Immature Gran % (Auto) Neut % (Auto) Lymph % (Auto) Amite % (Auto) Eos % (Auto) Baso % (Auto) Lymph # (Auto) Amite # (Auto) Eos # (Auto) Baso # (Auto) Abs Immat Gran (auto) Absolute Neuts (auto) Absolute Nucleated RBC Nucleated RBC % (auto) Smear Tech's Comments Sodium 143 Potassium 4.6 D Chloride 109 H Carbon Dioxide 24 Anion Gap 15 BUN 36 H D Creatinine 0.88 Estim Creat Clear Calc 64.8 Estimated GFR > 60 POC Glucose 128 H Random Glucose 147 H Lactic Acid Calcium 9.6 Magnesium Total Bilirubin AST ALT Alkaline Phosphatase B-Natriuretic Peptide Total Protein Albumin Respiratory Panel Heath Adenovirus (Rapid PCR) B.pert (TEM-PCR) B.parapertussis DNA PCR C. pneumoniae DNA (PCR) Coronavirus (PCR) Coronavirus OC43 (PCR) Coronavirus HKU1 (PCR) Coronavirus 229E (PCR) Coronavirus NL63 (PCR) Human Metapneumovir PCR Influenza A (RT-PCR) Influenza Type A (PCR) Influenza B (RT-PCR) Influenza Type B (PCR) M. pneumoniae (PCR) Parainfluenza 1 (PCR) Parainfluenza 2 (PCR) Parainfluenza 3 (PCR) Parainfluenza 4 (PCR) RSV (PCR) RSV RNA Qual (PCR) Entero/Rhino (PCR) SARS-CoV-2 RNA (RT-PCR) Preliminary micro results at discharge 06/21/20 03:36 Blood Culture - Preliminary Blood - Venous No growth after 48 hours. 06/21/20 03:33 Blood Culture - Preliminary Blood - Venous No growth after 48 hours. Discharge Plan Discharge Patient Disposition: Home, Self-Care Referrals: Kassie Rojas MD [Physician] - 1 Month (Follow-up for COPD evaluation and ongoing management.) Physician,Unknown [Primary Care Provider] - Discharge Medications: New codeine-guaifenesin 10-100 mg/5 mL Liquid 5 ml PO Q4H 7 Days RF: 1 prednisone 20 mg tablet 40 mg PO DAILY Qty: 6 RF: 0 azithromycin 250 mg tablet 250 mg PO DAILY 3 Days Qty: 3 RF: 0 albuterol sulfate 90 mcg/actuation HFA aerosol inhaler 2 puff inhalation Q4-6H PRN (Reason: shortness of breath or wheezing) 30 Days RF: 2 Continued Victoza 3-Riley 0.6 mg/0.1 mL (18 mg/3 mL) pen injector 1.8 mg subcut DAILY 30 Days Qty: 9 RF: 11 (DME) pen needle, diabetic [BD Ultra-Fine Micro Pen Needle] 32 gauge x 1/4 ne edle See Rx Instructions .ROUTE .MEDSUPPLY Qty: 50 RF: 11 (DME) lancets [FreeStyle Lancets] 28 gauge misc See Rx Instructions .ROUTE .MEDSUPPLY Qty: 100 RF: 11 gabapentin 300 mg capsule 300 mg PO TID 30 Days Qty: 90 RF: 3 mirtazapine 30 mg tablet 30 mg PO BEDTIME RF: 0 hydrochlorothiazide 12.5 mg tablet 12.5 mg PO DAILY RF: 0 amlodipine 2.5 mg tablet 2.5 mg PO DAILY RF: 0 atorvastatin 40 mg tablet 40 mg PO DAILY RF: 0 metoprolol succinate 25 mg tablet extended release 24 hr 25 mg PO DAILY RF: 0 famotidine 20 mg tablet 20 mg PO DAILY RF: 0 clonazepam 1 mg tablet 1 mg PO BID PRN (Reason: Anxiety) RF: 0 (DME) pen needle, diabetic 32 gauge x / needle See Rx Instructions ea .ROUTE .MEDSUPPLY Qty: 50 RF: 0 quetiapine 100 mg tablet 100 mg PO BEDTIME RF: 0 (DME) blood sugar diagnostic Strip See Rx Instructions ea .ROUTE .MEDSUPPLY Qty: 10 RF: 0 albuterol sulfate 2.5 mg /3 mL (0.083 %) solution for nebulization 2.5 mg inhalation Q4-6H PRN (Reason: Shortness Of Breath Or Wheezing) RF: 0 omeprazole 20 mg capsule,delayed release(DR/EC) 20 mg PO DAILY RF: 0 cholecalciferol (vitamin D3) 25 mcg (1,000 unit) capsule 25 mcg PO DAILY RF: 0 albuterol sulfate 90 mcg/actuation HFA aerosol inhaler inhalation RF: 0 (DME) FreeStyle Nemesio 14 Day [place] Misc See Rx Instructions .ROUTE .MEDSUPPLY Qty: 1 RF: 0 (DME) FreeStyle Nemesio 14 Day Sensor Kit See Rx Instructions .ROUTE .MEDSUPPLY Qty: 2 RF: 11 Discharge Orders: Discharge Order (Routine); Ordered 06/23/20 Ordered By: Shade Reed Diet: advance to usual diet Activity on Discharge: As tolerated Discharge Date/Time: 06/23/20 10:50 Print Language: Kinyarwanda Visit Report Forms: Patient Portal Discharge page Care Plan Goals: Read below Health Concerns: Read below Plan of Treatment: You were admitted to the hospital for treatment of COPD exacerbation. Your treated with IV steroids, antibiotics and nebulizers with good response. Continue prednisone and azithromycin as prescribed. To use albuterol inhaler as needed Use nebulizers as needed at home. To follow-up with Dr. Rojas after calling for an appointment
== END 2020-06-23 10:50 | disposition home or self-care (01) | DRG 190 ==
LOC: HO.ED 07:52 → HO.EDOVER 12:06 → HO.S3 14:09
PROVIDERS: Family Medicine; Nurse Practitioner Acute Care; Admitting Provider Student in an Organized Health Care Education/Training Program; Emergency Provider Student in an Organized Health Care Education/Training Program; Visit Provider Student in an Organized Health Care Education/Training Program
DX: J44.1 Chronic obstructive pulmonary disease with (acute) exacerbation (principal); J96.01 Acute respiratory failure with hypoxia; F32.9 Major depressive disorder, single episode, unspecified; K21.9 Gastro-esophageal reflux disease without esophagitis; E78.5 Hyperlipidemia, unspecified; I12.9 Hypertensive chronic kidney disease with stage 1 through stage 4 chronic kidney disease, or unspecified chronic kidney disease; E66.9 Obesity, unspecified; Z68.28 Body mass index [BMI] 28.0-28.9, adult; B97.89 Other viral agents as the cause of diseases classified elsewhere; E11.65 Type 2 diabetes mellitus with hyperglycemia; E11.22 Type 2 diabetes mellitus with diabetic chronic kidney disease; N18.9 Chronic kidney disease, unspecified; Z20.822 Contact with and (suspected) exposure to COVID-19; Z87.891 Personal history of nicotine dependence; Z79.899 Other long term (current) drug therapy
CPT/HCPCS: 0241U; 36415; 71045; 80048; 80053; 82947; 83605; 83735; 83880; 85025; 85027; 87040; 87633; 93005; 94640; 94644; 96365; 96366; 96375; 99285; J0456; J1956; J2920; J2930

== ENCOUNTER 2020-07-04 08:35 | Outpatient (REF) | payer MEDICARE, MEDICAID, SELFPAY ==
--- NOTE | 2020-07-04 08:40 | XR_ITS ---
EXAMINATION: XR ELBOW, LEFT CLINICAL INFORMATION: Pain in left elbow COMPARISON: None TECHNIQUE: AP, lateral, and oblique views of the left elbow. FINDINGS: No fracture or dislocation. Alignment is anatomic. Joint spaces are maintained. No elbow joint effusion. The soft tissues are unremarkable. XR/XR elbow LT 2V IMPRESSION: Normal left elbow.
== END 2020-07-04 08:36 | disposition home or self-care (01) ==
LOC: HO.XRAY 08:35
PROVIDERS: PCP Internal Medicine; Visit Provider Student in an Organized Health Care Education/Training Program
DX: J42 Unspecified chronic bronchitis (principal); G47.33 Obstructive sleep apnea (adult) (pediatric); F17.200 Nicotine dependence, unspecified, uncomplicated; Z79.4 Long term (current) use of insulin; Z79.899 Other long term (current) drug therapy
CPT/HCPCS: 73070; 99212

== ENCOUNTER → 2020-08-01 15:39 | Outpatient (BNVA) | payer MEDICARE, MEDICAID, SELFPAY | PROVIDERS: PCP Internal Medicine; Visit Provider Internal Medicine | DX: J20.9 Acute bronchitis, unspecified (principal); J42 Unspecified chronic bronchitis; J44.1 Chronic obstructive pulmonary disease with (acute) exacerbation; F17.200 Nicotine dependence, unspecified, uncomplicated | CPT/HCPCS: 99212 ==

== ENCOUNTER → 2020-09-04 11:06 | Outpatient (BNVA) | payer MEDICARE, MEDICAID, SELFPAY | PROVIDERS: PCP Internal Medicine; Visit Provider Internal Medicine | DX: J30.9 Allergic rhinitis, unspecified (principal); J33.9 Nasal polyp, unspecified; F17.200 Nicotine dependence, unspecified, uncomplicated; J20.9 Acute bronchitis, unspecified; J44.9 Chronic obstructive pulmonary disease, unspecified | CPT/HCPCS: 99212 ==

== ENCOUNTER → 2020-10-31 08:50 | Outpatient (BNVA) | payer MEDICARE, MEDICAID, SELFPAY | PROVIDERS: PCP Internal Medicine; Visit Provider Internal Medicine | DX: J44.9 Chronic obstructive pulmonary disease, unspecified (principal); J33.9 Nasal polyp, unspecified; J30.9 Allergic rhinitis, unspecified; F17.200 Nicotine dependence, unspecified, uncomplicated | CPT/HCPCS: 99212 ==

== ENCOUNTER → 2020-11-20 13:03 | Outpatient (BNVA) | payer MEDICARE, MEDICAID, SELFPAY | PROVIDERS: PCP Internal Medicine; Referring Provider Internal Medicine; Visit Provider Internal Medicine Cardiovascular Disease | DX: I10 Essential (primary) hypertension (principal); R00.2 Palpitations | CPT/HCPCS: 99212 ==

== ENCOUNTER → 2020-11-29 08:28 | Outpatient (REF) | payer MEDICARE, MEDICAID, SELFPAY ==
--- NOTE | 2020-11-29 08:45 | ECG_ITS ---
Hook-up date: 2020-11-29 15:25:00 Duration: 47:59:00 Test Indications: R00.2 - Palpitations Medications: [id number] QRS complexes 4 Ventricular ectopics which represent <1 % of total QRS comp. 23 Supraventricular ectopics which represent <1 % of total QRS comp. * Paced QRS complexs which represent % of total QRS comp. VENTRICULAR ECTOPY 4 Isolated 0 Bigeminal Cycles 0 Couplets 0 Runs 0 Beats in Runs * Beats LONGEST at * BPM at :: -- * Beats FASTEST at * BPM at :: -- SUPRAVENTRICULAR ECTOPY 17 Isolated 0 Couplets 2 Runs 6 Beats in Runs 3 Beats LONGEST at 135 BPM at 12:41:06 2020-11-30 3 Beats FASTEST at 135 BPM at 12:41:06 2020-11-30 HEART RATES 59 MIN at 05:27:12 2020-12-01 92 AVG 136 MAX at 13:19:07 2020-12-01 LONGEST RR 1.4640 secs at 05:27:07 2020-12-01 S-T LEVELS Channel 1 - 128 mm at 15:25:00 2020-11-29 - 128 mm at 15:25:00 2020-11-29 Channel 2 - 128 mm at 15:25:00 2020-11-29 - 128 mm at 15:25:00 2020-11-29 Channel 3 - 128 mm at 03:44:41 -- - 128 mm at 03:44:41 Basic rhythm Normal sinus rhythm No long pause or profound bradycardia Frequent Sinus tachycardia , 30% of time HR > 100 bpm Rare ectopics No diary submitted I was requested to read this study on 12/27/2020 Referred By: Greg Maria Overread By: WANG ADORNO MD
== END ==
LOC: HO.CARD 08:28
PROVIDERS: Visit Provider Internal Medicine Cardiovascular Disease
DX: R00.2 Palpitations (principal)
CPT/HCPCS: 93226

== ENCOUNTER → 2020-11-29 14:43 | Outpatient (BNVA) | payer MEDICARE, MEDICAID, SELFPAY | PROVIDERS: PCP Internal Medicine; Visit Provider Internal Medicine Cardiovascular Disease ==

== ENCOUNTER → 2021-01-15 10:27 | Outpatient (BNVA) | payer MEDICARE, MEDICAID, SELFPAY | PROVIDERS: PCP Internal Medicine; Visit Provider Internal Medicine | DX: J44.0 Chronic obstructive pulmonary disease with (acute) lower respiratory infection (principal); J33.9 Nasal polyp, unspecified; J30.9 Allergic rhinitis, unspecified; J20.9 Acute bronchitis, unspecified; F17.200 Nicotine dependence, unspecified, uncomplicated | CPT/HCPCS: 99212 ==

== ENCOUNTER → 2021-01-29 11:02 | Outpatient (BNVA) | payer MEDICARE, MEDICAID, SELFPAY | PROVIDERS: PCP Internal Medicine; Visit Provider Internal Medicine | DX: J44.9 Chronic obstructive pulmonary disease, unspecified (principal); J33.9 Nasal polyp, unspecified; J20.9 Acute bronchitis, unspecified; G47.33 Obstructive sleep apnea (adult) (pediatric); E11.22 Type 2 diabetes mellitus with diabetic chronic kidney disease; I12.9 Hypertensive chronic kidney disease with stage 1 through stage 4 chronic kidney disease, or unspecified chronic kidney disease; N18.9 Chronic kidney disease, unspecified; E66.9 Obesity, unspecified; F17.210 Nicotine dependence, cigarettes, uncomplicated; Z68.27 Body mass index [BMI] 27.0-27.9, adult; Z88.8 Allergy status to other drugs, medicaments and biological substances; Z79.4 Long term (current) use of insulin; Z79.899 Other long term (current) drug therapy | CPT/HCPCS: 99212 ==

== ENCOUNTER 2021-01-31 13:45 | Outpatient (REF) | payer MEDICARE, MEDICAID, SELFPAY ==
--- NOTE | ~2021-01-31 | CT_ITS ---
EXAMINATION: CT CHEST SCREENING CLINICAL INFORMATION: Smoking history. Current smoker. [id number] history. COMPARISON: Previous chest x-rays most recent June 2020. TECHNIQUE: Multidetector volumetric CT imaging of the chest is performed without contrast using low dose technique. Additional 2D coronal and sagittal reformatted images and axial 3D maximum intensity projection (MIP) images are generated on the CT workstation. This CT examination was performed using dose optimization techniques as appropriate, variously including the following: *Automated exposure control *Adjustment of mA and/or kV according to patient size (this includes techniques or standardized protocols for targeted exams where dose is matched to indication/reason for exam; i.e. extremities or head) *Use of iterative reconstruction technique DLP: 48 mGy-cm FINDINGS: LUNGS: There is a 3 mm right upper lobe nodule axial image 134 series 5. There is a 5 mm calcified left upper lobe nodule axial image 203 series 5. The lungs are otherwise clear. MEDIASTINUM: There are calcified right hilar and mediastinal lymph nodes. No enlarged lymph nodes are seen. There is coronary artery and aortic valve calcification. PLEURA: There is no pleural effusion. No pleural mass or thickening. AXILLA: No lymphadenopathy. UPPER ABDOMEN: Unremarkable OSSEOUS STRUCTURES: Unremarkable CT/CT lung screening IMPRESSION: Evidence of old granulomatous disease with calcified left upper lobe pulmonary nodule and calcified right mediastinal and hilar lymph nodes. 3 mm noncalcified right upper lobe nodule. Coronary artery and aortic valve calcification. ASSESSMENT: Lung-RADS category 2. RECOMMENDATION: Annual low-dose chest CT follow up recommended.
== END 2021-01-31 13:46 | disposition home or self-care (01) ==
LOC: HO.CT 13:45
PROVIDERS: Visit Provider Physician Assistant Medical
DX: Z12.2 Encounter for screening for malignant neoplasm of respiratory organs (principal); F17.210 Nicotine dependence, cigarettes, uncomplicated
CPT/HCPCS: 71271

== ENCOUNTER → 2021-02-06 14:19 | Outpatient (BNVA) | payer MEDICARE, MEDICAID, SELFPAY | PROVIDERS: PCP Internal Medicine; Visit Provider Internal Medicine | DX: E11.65 Type 2 diabetes mellitus with hyperglycemia (principal); E78.5 Hyperlipidemia, unspecified; I10 Essential (primary) hypertension | CPT/HCPCS: 82947; 83036; 99212 ==

== ENCOUNTER → 2021-04-17 13:32 | Outpatient (BNVA) | payer MEDICARE, MEDICAID, SELFPAY | PROVIDERS: PCP Internal Medicine; Visit Provider Internal Medicine | DX: J33.9 Nasal polyp, unspecified (principal); J30.9 Allergic rhinitis, unspecified; J44.9 Chronic obstructive pulmonary disease, unspecified; J20.9 Acute bronchitis, unspecified; J42 Unspecified chronic bronchitis; F17.200 Nicotine dependence, unspecified, uncomplicated | CPT/HCPCS: 99212 ==

== ENCOUNTER 2021-08-25 | Outpatient (REF) | payer MEDICARE, MEDICAID, SELFPAY | END 2021-08-25 00:01 | LOC: CF | PROVIDERS: Visit Provider Internal Medicine | DX: J44.9 Chronic obstructive pulmonary disease, unspecified (principal); J30.9 Allergic rhinitis, unspecified; F17.210 Nicotine dependence, cigarettes, uncomplicated; Z79.899 Other long term (current) drug therapy | CPT/HCPCS: 99212 ==

== ENCOUNTER → 2021-09-25 11:34 | Outpatient (BNVA) | payer MEDICARE, MEDICAID, SELFPAY | PROVIDERS: PCP Internal Medicine; Visit Provider Internal Medicine | DX: J44.9 Chronic obstructive pulmonary disease, unspecified (principal); J30.9 Allergic rhinitis, unspecified; Z87.891 Personal history of nicotine dependence | CPT/HCPCS: 99212 ==

== ENCOUNTER → 2021-10-09 10:21 | Outpatient (BNVA) | payer MEDICARE, MEDICAID, SELFPAY | PROVIDERS: PCP Internal Medicine; Visit Provider Internal Medicine | DX: E11.65 Type 2 diabetes mellitus with hyperglycemia (principal); E78.5 Hyperlipidemia, unspecified; I10 Essential (primary) hypertension | CPT/HCPCS: Q3014 ==